=== PATIENT | female | born 1995 | race Caucasian/White ===

== ENCOUNTER 2024-05-14 15:58 | Outpatient (CLI) | payer BC, SELFPAY ==
[2024-05-14 15:54] LABS: Abs Immature Grans 0.01 10^3/uL (0.0-0.06); Absolute Basophil Count 0.02 10^3/uL (0.0-0.2); Absolute Eosinophil Count 0.03 10^3/uL (0.0-0.7); Absolute Lymphocyte Count 1.82 10^3/uL (1.2-3.4); Absolute Monocyte Count 0.35 10^3/uL (0.1-0.8); Absolute Neutrophil Count 3.49 10^3/uL (1.2-6.7); Basophils % 0.3 %; Eosinophils % 0.5 %; HCT 33.6 % (36.0-46.0); HGB 11.7 g/dL (11.2-15.7); Immature Grans % 0.2 %; Lymphocytes % 31.8 %; MCH 37.3 pg (27.0-33.0); MCHC 34.8 % (32.0-36.0); MCV 107 fL (80-95); Monocytes % 6.1 %; Neutrophils % 61.1 %; Platelet Count 119 10^3/uL (130-400); RBC 3.14 10^6/uL (3.93-5.22); RDW 13.7 % (11.7-14.6); WBC 5.72 10^3/uL (4.4-10.8)
[2024-05-14 16:06] LABS: Diff Comment RBC Morph Reviewed; Macrocytosis 1+
[2024-05-14 16:13] LABS: LDH 167 U/L (81-234)
== END 2024-05-14 15:59 | disposition home or self-care (01) ==
LOC: LBO 16:01
PROVIDERS: Visit Provider Internal Medicine
DX: D59.5 Paroxysmal nocturnal hemoglobinuria [Marchiafava-Micheli] (principal)
CPT/HCPCS: 36415; 83615; 85025

== ENCOUNTER 2024-06-12 10:51 | Emergency (ER) | payer BC, SELFPAY ==
[2024-06-12 11:05] VITALS: BP 121/82; PULSE 74; RESP 14; TEMP 36.3; O2SAT 98
--- NOTE | 2024-06-12 11:24 | DI.CT_ITS ---
Exam(s) CT HEAD WO/W EXAM: CT HEAD WO/W CLINICAL HISTORY: CTV to eval for venous sinus thrombosis. TECHNIQUE: Imaging Protocol: Axial computed tomography images with coronal and sagittal reformatted images were created and reviewed. CONTRAST MATERIAL: Intravenous: Omnipaque 350 contrast volume:100 mL COMPARISON: No exams were available for comparison FINDINGS: Ventricles and Extra axial spaces: Normal in size and morphology for the patient's age. Hemorrhage: None. Cerebral parenchyma: No evidence of an acute territorial infarct. No mass effect. Enhancement: No suspicious enhancement. [place] of [place]: Unremarkable. Midline shift: None. Brainstem/Cerebellum: Normal. Calvarium: Normal. Visualized Paranasal sinuses/Mastoids: Clear. Cerebral veins: The sigmoid sinuses, straight sinus, superior sagittal sinus and vein of [place]bert are pa tent without evidence of thrombosis. There is a filling defect seen in the mid left transverse sinus most consistent with an arachnoid granulation. The right transverse sinus is patent. No evidence of a venous thrombosis. IMPRESSION: 1. No acute intracranial process. 2. Filling defect seen in the region of the left transverse sinus most consistent with an arachnoid g ranulation and less likely to represent a focal thrombosis. 3. No definite evidence of a cerebral venous sinus thrombosis. RADIATION DOSE DELIVERED: 1,732.23mGy.cm Total DLP 1,732.23mGy.cm Total DLP DATA REPOSITORY: All CT scans at this facility are submitted to the National Radiology Data Registry (NRDR) Dose Index Registry (DIR) with the [employer] ([employer]). RADIATION OPTIMIZATION: All CT scans at this facility use at least one of these dose optimization te chniques: automated exposure control; mA and/or kV adjustment per patient size (includes targeted exa ms where dose is matched to clinical indication); or iterative reconstruction.
--- NOTE | 2024-06-12 11:28 | ED.GENADUL_ITS ---
Discharge Plan Disposition Patient Disposition: Home Condition: Stable Discharge Details Clinical Impression: Headache, Thrombocytopenia, Paroxysmal nocturnal hemoglobinuria Primary Care Provider: Unknown,Unknown ED Provider: Angelica Hamilton Home Meds and New Rx's Prescriptions: No Action Ultomiris 100 mg/mL solution 600 mg IV .q 8 weeks penicillin V potassium 500 mg tablet 500 mg PO BID Discharge Instructions Instructions: Headache, Adult ED Additional Instructions: You were seen in the emergency department today for evaluation of a headache and neck and back stiffness. In our department a full physical examination performed, had laboratory studies that were reassuring, and had a CT scan that did not show any sign of venous thrombosis in your brain. It is safe for you to leave the emergency department and continue the workup into this condition with your quality assurance manager. Please continue to take all medications as prescribed, and return to the emergency department immediately if you develop a fever, a red or purple polka dot rash, changes in your mental status or any other symptoms that cause you concern. Thank you for allowing us to be part of your care. HPI General Mode of arrival: ambulatory . Date/Time Provider Initiated Documentation: 06/12/24 10:55 . Limitations to Documentation: no limitations . Information obtained by: patient and old records reviewed . HPI Narrative: HPI: This is a 28-year-old female patient with a past medical history significant for paroxysmal nocturnal hematuria who is presenting for evaluation of 2 weeks of frontal headache and upper back and neck stiffness. The patient reports that she was prompted to seek care because she was also feeling slightly nauseated and unwell, and knows that she has a high likelihood for meningococcal pneumonia compared to the general population. She took an Excedrin this morning with some improvement in her headache, which is located in the front of her head and is dull and constant. She was able to be evaluated by her quality assurance manager at [facility] 3 days ago, and he was concerned given the headache that is not typical for migraines, and wanted a dural venous sinus thrombosis workup performed. The patient reports that she has not had fevers or chills, denies significant vision changes, has not noted any new numbness or weakness, did have a brief episode of bilateral foot tingling this morning that has resolved entirely. The patient denies recent sick contacts, and has otherwise been in her normal state of health. She did receive the meningitis vaccine this fall. No active bleeding or hematuria reported Exam: Gen: Awake and alert, in no apparent distress HEENT: Non-icteric sclera, PERRL, EOMs are full and without nystagmus Neck: Supple, no meningismus Lungs: No apparent respiratory distress, normal respiratory effort. CV: Appears well perfused, strong distal pulses Abdomen: Non-distended MSK: Moves 4 extremities without apparent limitation in ROM Skin: Visualized skin without rashes, cyanosis. No petechiae noted Neuro: Normal Gait, cranial nerves II through XII intact and symmetrical bilaterally, 5 out of 5 strength x 4 extremities, no sensory deficits Psych: Appropriate for situation. MDM: This is a 28-year-old female patient presenting for evaluation of headache and neck stiffness. Differential includes but is not limited to dural venous sinus thrombosis, certainly considered meningitis and encephalitis though the patient is reassuringly without fever, nuchal rigidity or meningismus. Considered migraine, tension headache, cluster headache. No neurodeficits to increase my concern for CVA, space-occupying lesion. Finally, I considered viral upper respiratory infection as body aches and nausea can be present with influenza and COVID. The patient has no current active bleeding but I did consider anemia, kidney injury, hematuria, urinary tract infection. I will provide the patient with a dose of Zofran for symptomatic management for nausea. Will obtain laboratory studies to include CBC, CMP, magnesium, INR, and urinalysis with [id number] screen. I will obtain a CT venogram to evaluate for dural venous sinus thrombosis. ED Course: I reviewed the patient's laboratory studies, which show no leukocytosis, and improvement in her hemoglobin with no significant anemia, though she does have a macrocytosis to 109, and a thrombocytopenia which is stable at 124. Chemistry panel is without significant electrolyte derangements though she does have a slight elevation in her bilirubin to 2.6. She has no hematuria or evidence of infection in her urine and her COVID test was negative. CT knee was reviewed by myself, showing no evidence of dural venous sinus thrombosis, she does have an arachnoid granulation but no other intracranial abnormalities. On reassessment the patient reports that her nausea has improved and she is otherwise without worsening of her symptoms. She has the ability to reach out to hematology and discussed the findings in the emergency department and next steps in workup and management of her headache. We had an extended conversation regarding return precautions for meningitis. At this time, the patient has had a full medical evaluation and is safe for discharge to home. They are hemodynamically stable, ambulatory, and tolerating PO. They are understanding of the follow-up plan and return precautions. They left our facility without incident. Angelica Hamilton MD Related Data Home Medications ?Medication ?Instructions ?Recorded ?Confirmed penicillin V potassium 500 mg 500 mg PO BID 06/12/24 06/12/24 tablet [id number] 100 mg/mL 600 mg IV .q 8 weeks 06/12/24 06/12/24 intravenous solution (Ultomiris) Allergies Allergy/AdvReac Type Severity Reaction Status Date / Time erythromycin base Allergy Mild rash Verified 06/12/24 11:03 General Stated Complaint: GenMedical DAGMAR: 4 Course Vital Signs Vital signs: Vital Signs Temperature 36.3 C L 06/12/24 11:05 Pulse 74 06/12/24 11:05 Respiratory Rate 14 06/12/24 11:05 Blood Pressure 121/82 06/12/24 11:05 Pulse Oximetry 98 06/12/24 11:05 Temperature 36.3 C L 06/12/24 11:05 Pulse 74 06/12/24 11:05 Respiratory Rate 14 06/12/24 11:05 Blood Pressure 121/82 06/12/24 11:05 Blood Pressure Position Sitting 06/12/24 11:05 Pulse Oximetry 98 06/12/24 11:05 Oxygen Delivery Method Room Air 06/12/24 11:05 Oxygen Flow Rate 0 06/12/24 11:05 Pain Level 4 06/12/24 11:05 Medical Decision Making Quality:SDOH Health Related Social Needs: No Data to Display PFSH All Active Problems (Updated 06/12/24 @ 15:07 by Angelica Hamilton MD) Paroxysmal nocturnal hemoglobinuria (Acute) Thrombocytopenia (Chronic) Headache (Acute) Social History Smoking/Tobacco Use Status: Never Smoking risk assessment performed?: Yes Alcohol Intake: never Drug use: Occasionally Substance use type: marijuana Housing: house Do you feel safe at home: Yes Do you feel safe in your relationship?: Yes
[2024-06-12 12:15] VITALS: RESP 18
[2024-06-12 12:58] LABS: Abs Immature Grans 0.02 10^3/uL (0.0-0.06); Absolute Basophil Count 0.03 10^3/uL (0.0-0.2); Absolute Eosinophil Count 0.01 10^3/uL (0.0-0.7); Absolute Lymphocyte Count 1.29 10^3/uL (1.2-3.4); Absolute Monocyte Count 0.36 10^3/uL (0.1-0.8); Absolute Neutrophil Count 4.76 10^3/uL (1.2-6.7); Basophils % 0.5 %; Eosinophils % 0.2 %; HCT 37.4 % (36.0-46.0); HGB 12.9 g/dL (11.2-15.7); Immature Grans % 0.3 %; Lymphocytes % 19.9 %; MCH 37.7 pg (27.0-33.0); MCHC 34.5 % (32.0-36.0); MPV 8.5 fL (8.0-11.0); Monocytes % 5.6 %; Neutrophils % 73.5 %; Platelet Count 124 10^3/uL (130-400); RBC 3.42 10^6/uL (3.93-5.22); RDW 12.3 % (11.7-14.6); RDW-SD 49.2 fL; WBC 6.47 10^3/uL (4.4-10.8)
[2024-06-12 13:03] LABS: MCV 109 fL (80-95)
[2024-06-12 13:08] LABS: INR 0.9 (0.9-1.1); Prothrombin Time 9.4 sec (9.1-11.1)
[2024-06-12] MEDS: Ondansetron 4 MG/2 ML VIAL IVP (13:11)
[2024-06-12 13:14] LABS: ALT 31 U/L (14-59); AST 30 U/L (15-37); Albumin 4.5 g/dL (3.4-5.0); Alkaline Phosphatase 145 U/L (46-116); Anion Gap 8.9 mmol/L (3-11); BUN 13 mg/dL (7-18); Bilirubin, Total 2.61 mg/dL (0.2-1.0); CO2 29.1 mmol/L (21.0-32.0); CREATININE 0.9 mg/dL (0.55-1.02); Calcium 9.9 mg/dL (8.5-10.1); Chloride 102 mmol/L (98-107); Estimated GFR 90.42 (mL/min/1.73m2); Glucose 92 mg/dL (74-106); Magnesium 1.9 mg/dL (1.8-2.4); Potassium 3.9 mmol/L (3.5-5.1); Sodium 140 mmol/L (136-145); Total Protein 8.1 g/dL (6.4-8.2)
[2024-06-12 13:22] LABS: Bilirubin Negative (Negative); Blood Negative (Negative); Clarity Clear (Clear); Glucose Negative (Negative); Ketones Negative (Negative); Leukocyte Esterase Negative (Negative); Nitrite Negative (Negative); Urobilinogen 0.2 mg/dL (Up to 0.2); pH 5.5 (5-8)
[2024-06-12] MEDS: Omnipaque 350 MG/ML 100 ML BTL IJ (13:35)
[2024-06-12] MEDS: Normal Saline - Diluent 50 ML VIAL IJ (13:35)
[2024-06-12 13:43] LABS: COVID-19 PCR Negative (Negative); Influenza A PCR Negative (Negative); Influenza B PCR Negative (Negative); RSV PCR Negative (Negative)
[2024-06-12 13:44] LABS: Source Nasopharynx
--- NOTE | 2024-06-12 14:32 | DI.VRAD_ITS ---
PROCEDURE INFORMATION: Exam: CT Head With Contrast Exam date and time: 06/12/2024 1:26 PM Age: 28 years old Clinical indication: Screening exam; Ctv to eval for venous sinus thrombosis TECHNIQUE: Imaging protocol: Computed tomography of the head with intravenous contrast. Contrast material: OMNIPAQUE 350; Contrast volume: 100 ml; Contrast route: INTRAVENOUS (IV); COMPARISON: No relevant prior studies available. FINDINGS: Brain: There is no intracranial hemorrhage. There is no midline shift or space occupying mass. There is normal urrutia-white matter differentiation without evidence of acute large vascular territorial infarct. There is no cerebral edema. There are no extra-axial fluid collections. The posterior fossa structures are unremarkable. The basal cisterns are patent. No pathologic intracranial enhancement. Cerebral ventricles: The ventricles are normal in position. No hydrocephalus. Bones/joints: No acute fracture. No suspicious osseous lesions. Paranasal sinuses: The visualized paranasal sinuses are well-aerated. There are no air fluid levels to suggest acute sinusitis. Mastoid air cells: The tympanomastoid air cells are normally aerated as visualized. Orbits: The orbits are unremarkable as visualized. Veins: The dural sinuses, including the superior sagittal, straight, transverse, and sigmoid sinuses, are patent without evidence for thrombosis. There is a focal area of diminished enhancement within the LEFT distal transverse sinus consistent with an arachnoid granulation and much less likely public service representative of focal thrombosis. Soft tissues: The soft tissues are unremarkable. IMPRESSION: 1. Normal CT scan of the brain without and with contrast. 2. Focal area of diminished enhancement within the LEFT distal transverse sinus consistent with an arachnoid granulation and much less likely public service representative of focal thrombosis. Otherwise no evidence of dural venous sinus thrombosis. Dictated and Authenticated by: Jannie Raphael MD. Orderin [facility]. Mekhi Dominguez MD
[2024-06-12 15:16] VITALS: BP 103/68; PULSE 69; RESP 19; O2SAT 99
== END 2024-06-12 15:16 | disposition home or self-care (01) ==
PROVIDERS: Emergency Provider Emergency Medicine
DX: R51.9 Headache, unspecified (principal); D59.5 Paroxysmal nocturnal hemoglobinuria [Marchiafava-Micheli]; D69.6 Thrombocytopenia, unspecified; R11.0 Nausea
CPT/HCPCS: 80053; 81025; 87637; 96374; 99285; 70470; 81003; 83735; 85025; 85610; 99284; J2405; J3490